=== PATIENT | female | born 1960 | race Caucasian/White ===

== ENCOUNTER 2018-05-17 16:46 | Emergency (ER) | payer MEDICARE | END 2018-05-17 17:10 | disposition home or self-care (01) | LOC: MADERS 16:46 | DX: S80.812A Abrasion, left lower leg, initial encounter (principal); E78.5 Hyperlipidemia, unspecified; I10 Essential (primary) hypertension; E10.9 Type 1 diabetes mellitus without complications; J44.9 Chronic obstructive pulmonary disease, unspecified; F32.9 Major depressive disorder, single episode, unspecified; F17.210 Nicotine dependence, cigarettes, uncomplicated; X58.XXXA Exposure to other specified factors, initial encounter | CPT/HCPCS: 99406 ==

== ENCOUNTER 2018-11-04 17:01 | Emergency (ER) | payer MEDICARE ==
[2018-11-04] MEDS ORDERED: Ibuprofen 800 MG TAB ONE (17:50)
[2018-11-04] MEDS ORDERED: Acetaminophen 325 MG TAB ONE (17:50)
[2018-11-04] MEDS ORDERED: HYDROcodone/Acetaminophen 5/325 mg Tablet ONE (17:50)
== END 2018-11-04 17:57 | disposition home or self-care (01) ==
LOC: MADERS 17:01
DX: M79.651 Pain in right thigh (principal); E10.9 Type 1 diabetes mellitus without complications; F32.9 Major depressive disorder, single episode, unspecified; F17.210 Nicotine dependence, cigarettes, uncomplicated; Z79.84 Long term (current) use of oral hypoglycemic drugs
CPT/HCPCS: 99283

== ENCOUNTER 2019-06-09 08:17 | Emergency (ER) | payer MEDICARE, OTHER | END 2019-06-09 08:57 | disposition home or self-care (01) | LOC: MADERS 08:17 | DX: M25.512 Pain in left shoulder (principal); E78.5 Hyperlipidemia, unspecified; E78.00 Pure hypercholesterolemia, unspecified; I10 Essential (primary) hypertension; E10.9 Type 1 diabetes mellitus without complications; J44.9 Chronic obstructive pulmonary disease, unspecified; F32.9 Major depressive disorder, single episode, unspecified; F17.210 Nicotine dependence, cigarettes, uncomplicated | CPT/HCPCS: 99283 ==

== ENCOUNTER 2019-12-23 21:20 | Emergency (ER) | payer MEDICARE ==
[~2019-12-23 21:20] MED LIST: Sodium Chloride 0.9% 1,000 ML BAG ONE; Sodium Chloride 0.9% 100 ML BAG ONE
[2019-12-23] MEDS ORDERED: Insulin Regular 300 UNITS/3 ML VIAL ONE (21:49)
[2019-12-23 21:50] LABS: Mean Corpuscular HGB CONC 31.1 g/dL (32.0-36.0); Mean Corpuscular Hemoglobin 30.1 pg (27.0-31.0); Mean Corpuscular Volume 96.7 fL (78.0-98.0); Mean Platelet Volume 8.6 fL (7.4-10.4); Platelet Count 406 thou/uL (130-400); RBC Distribution Width 13.1 % (11.5-14.5); White Blood Cell (WBC) Count 22.2 thou/uL (4.8-10.8)
--- NOTE | 2019-12-23 21:54 | RAD ---
Chest one view HISTORY: Dyspnea. COMPARISON: 03/09/2018. FINDINGS: Cardiac silhouette and pulmonary vasculature are unremarkable. Mediastinum is midline with aortic calcification. No lobar consolidation or evidence of pneumothorax. Calcified granulomata are consistent with healed granulomatous disease. carbon paper coating supervisor leads overlie the chest. IMPRESSION : Chronic-type findings are stable. No active cardiopulmonary abnormalities are demonstrated.
[2019-12-23 22:10] LABS: ALT (SGPT) 14 U/L (8-55); AST (SGOT) 23 U/L (5-34); Albumin 4.2 g/dL (3.4-4.8); Alkaline Phosphatase 125 U/L (40-110); BUN (Urea Nitrogen) 39 mg/dL (9.8-20.1); Bilirubin, Total 0.4 mg/dL (0.2-1.2); Calc. Creatinine Clearance 0 mL/min (70-130); Calcium 10.1 mg/dL (7.8-10.44); Chloride 95 mmol/L (98-107); Globulin 3.9 g/dL (2.4-3.5); Lipase 18 U/L (8-78); Potassium 6.4 mmol/L (3.5-5.1); Protein, Total 8.1 g/dL (6.0-8.3); Sodium 132 mmol/L (136-145)
[2019-12-23 22:16] LABS: Carbon Dioxide Less than 8 mmol/L (23-31); Glucose 779 mg/dL (80-115)
[2019-12-23 22:27] LABS: Band 8 % (5-11); Lymphocytes 13 % (21-51); MDiff Complete? YES; Metamyelocyte 2 % (0-0); Monocytes 3 % (0-10); Neutrophil 73 % (42-75); Platelet Morphology Comment Appears Increased; RBC Morphology Normal
== END 2019-12-23 23:40 | disposition short-term general hospital (02) ==
LOC: MADERS 21:20
DX: E10.10 Type 1 diabetes mellitus with ketoacidosis without coma (principal); E87.5 Hyperkalemia; E78.5 Hyperlipidemia, unspecified; E78.00 Pure hypercholesterolemia, unspecified; I10 Essential (primary) hypertension; J44.9 Chronic obstructive pulmonary disease, unspecified; F32.9 Major depressive disorder, single episode, unspecified; F17.210 Nicotine dependence, cigarettes, uncomplicated; Z79.4 Long term (current) use of insulin
CPT/HCPCS: 36416; 71045; 80053; 83690; 84484; 85025; 96361; 96365; 96375; J1815; J3490; J7050

== ENCOUNTER 2021-07-10 16:01 | Emergency (ER) | payer MEDICARE, SELFPAY | END 2021-07-10 17:40 | disposition home or self-care (01) | LOC: MADERS 16:01 | DX: S82.831A Other fracture of upper and lower end of right fibula, initial encounter for closed fracture (principal); E78.5 Hyperlipidemia, unspecified; I10 Essential (primary) hypertension; E10.9 Type 1 diabetes mellitus without complications; J44.9 Chronic obstructive pulmonary disease, unspecified; F17.210 Nicotine dependence, cigarettes, uncomplicated; X50.9XXA Other and unspecified overexertion or strenuous movements or postures, initial encounter | CPT/HCPCS: 27786 ==